=== PATIENT | female | born 1995 | race Caucasian/White ===

== ENCOUNTER 2018-05-05 15:29 | Emergency (ER) | payer BC ==
[2018-05-05] MEDS ORDERED: NS 1,000 ML IV ONE (15:44)
--- NOTE | 2018-05-05 15:44 | EDPHY ---
General <Za Escobar - Last Filed: 05/05/18 17:26> - History Smoking Status: Never smoked <Prasanth Mckenzie - Last Filed: 05/07/18 09:22> Time Seen by Provider: 05/05/18 15:37 Narrative: CHIEF COMPLAINT: back pain, recent UTI HISTORY OF PRESENT ILLNESS: Patient presents with complaints of back pain and recent urinary tract infection diagnosis. She states that she felt some burning with her urination on Wednesday, and she was evaluated at [facility] at on Wednesday. She was diagnosed with a UTI and bacterial vaginosis. She was prescribed an antibiotic that she was taking twice daily. She was prescribed an intravaginal gel for the bacterial vaginosis. She has been taking this but now complains of right lower back pain. She has no dysuria, vaginal discharge or bleeding. No nausea or vomiting. No chest pain. No shortness of breath. No fever. She states that she went back to [facility], and they recommended she present here for further care for possible stone versus pyelonephritis. No other associated complaints or modifying factors. REVIEW OF SYSTEMS: Ten systems reviewed and are negative unless otherwise noted in the HPI PCP: [facility] SPECIALISTS: None PAST MEDICAL HISTORY: Uncomplicated. IUD in place PAST SURGICAL HISTORY: No surgical history SOCIAL HISTORY: Electronic nicotine use. Occasional alcohol marijuana use. Currently student [employer]. Originally from [place] FAMILY HISTORY: Noncontributory EXAMINATION General Appearance: Alert, no distress Head: normocephalic, atraumatic Eyes: Pupils equal and round, no conjunctival pallor or injection ENT, Mouth: Mucous membranes moist Neck: Normal inspection, supple, non-tender Respiratory: Lungs are clear to auscultation Cardiovascular: Regular rate and rhythm Gastrointestinal: Abdomen is soft and nontender. No tympany rigidity. No guarding. Bowel sounds present all 4 quadrants. There is very mild right CVA tenderness. Benign exam Back: Mild tenderness in the soft tissue of the right lower lumbar region. No midline tenderness. Neurological: A&O, nonfocal, normal gait Skin: Warm and dry, no rash Extremities: Nontender, no pedal edema Psychiatric: Mood and affect normal DIFFERENTIAL DIAGNOSES: Including but not limited to renal colic, ureteral colic, urinary tract infection, pyelonephritis, colitis, diverticulitis, appendicitis MDM: 3:40 p.m. Right lower back pain with recent urinary tract infection diagnosis. Her abdominal exam is benign with no tenderness in any location anterior. She does have mild right-sided CVA tenderness. Vital signs are within normal limits with no tachycardia or fever. She does not meet any criteria for SIRS. We will obtain the urinalysis from [facility] at . Additionally an IV was placed and will obtain laboratory studies and administer IV fluid. 4:00 p.m. CBC and chemistry unremarkable. A point of care urine test was performed by RN and is negative. I have ordered Toradol for pain control. 4:45 p.m. There is microscopic hematuria. There is mild pyuria. I have re-evaluated the patient. Pain is improved. She would like to pursue ultrasound. I have ordered ultrasound of the retroperitoneum for possibility of stone. I do not feel the pyelonephritis is likely. I do feel that she does have stone, thus will be nonobstructive stone. At this time I have also discussed the case with Za Escobar PA-C. She will take over the care the patient. Please see her note for further care final disposition. (Prasanth Mckenzie) - Objective Vital Signs: Initial Vital Signs Temperature (C) 98.6 F 05/05/18 15:32 Heart Rate 71 05/05/18 15:32 Respiratory Rate 16 05/05/18 15:32 Blood Pressure 111/64 05/05/18 15:32 O2 Sat (%) 95 05/05/18 15:32 O2 Delivery Mode Room Air Allergies/Adverse Reactions: No Known Allergies Allergy (Unverified 05/05/18 15:32) Home Medications: Medication Instructions Recorded Ondansetron Odt [Zofran Odt 4 mg 4 mg PO Q6 PRN #12 tab 05/05/18 (*)] Phenazopyridine HCl [Pyridium] 200 mg PO TID #5 tab 05/05/18 Sulfamethox/Tmp 800/160 mg 1 tab PO BID 5 Days tab 05/05/18 [Bactrim Ds] oxyCODONE HCL/ACETAMINOPHEN 1 each PO Q4-6PRN PRN #5 tablet 05/05/18 [Percocet 5-325 mg Tablet] Laboratory Results: Laboratory Results 05/05/18 15:50 05/05/18 15:50 Medications Given: Discontinued Medications Sodium Chloride (Ns) 1,000 mls @ 0 mls/hr IV EDNOW ONE; Wide Open PRN Reason: Protocol Stop: 05/05/18 15:45 Last Admin: 05/05/18 15:53 Dose: 1,000 mls Ketorolac Tromethamine (Toradol) 30 mg IVP EDNOW ONE Stop: 05/05/18 16:24 Last Admin: 05/05/18 16:30 Dose: 30 mg ED Course Care Turn Over (time): 17:00 <Za Escobar - Last Filed: 05/05/18 17:26> <Prasanth Mckenzie - Last Filed: 05/07/18 09:22> Discussion: Care turned over to me by Prasanth Mckenzie. Patient was diagnosed on Wednesday with urinary tract infection at [facility] and started on an ciprofloxacin. Patient complains of Right lower back pain. Abdomen is soft and nontender. She does have some mild right-sided CVA tenderness. Labs reviewed. No signs of leukocytosis/anemia/platelet dysfunction/BARB/elevated LFTs/electrolyte imbalance/pancreatitis. Urinalysis shows WBC 5-10 trace LE and 1+ blood. Called by Radiology that retroperitoneal ultrasound shows no stone, no pyelonephritis. Plan is to switch patient to Bactrim, given Zofran and Pyridium. Follow up with [facility] [place]. (Za Escobar) Departure <Za Escobar - Last Filed: 05/05/18 17:26> <Prasanth Mckenzie - Last Filed: 05/07/18 09:22> - Departure Disposition: Home, Routine, Self-Care Clinical Impression: Flank pain UTI (urinary tract infection) Qualifiers: Urinary tract infection type: acute cystitis Hematuria presence: with hematuria Qualified Code(s): N30.01 - Acute cystitis with hematuria Condition: Good Instructions: Phenazopyridine (By mouth), Urinary Tract Infection in Women (ED) , Renal Colic (ED), Flank Pain (ED) Additional Instructions: 1. Medications as prescribed as needed for pain 2. Discontinue ciprofloxacin. Transition to Bactrim as prescribed 3. Follow up with [facility] at 4. ED precautions for any worsening pain, fever, nausea vomiting. 5. Please observe pelvic rest for 7-10 days. Referrals: Sylvie Carpenter MD [Medical Doctor] - As per Instructions [facility] [Clinic] - As per Instructions Stand Alone Forms: School Excuse Prescriptions: Ondansetron Odt [Zofran Odt 4 mg (*)] 4 mg PO Q6 PRN #12 tab PRN Reason: Nausea/Vomiting, Use 1st oxyCODONE HCL/ACETAMINOPHEN [Percocet 5-325 mg Tablet] 1 each PO Q4-6PRN PRN #5 tablet PRN Reason: Pain, Breakthrough Phenazopyridine HCl [Pyridium] 200 mg PO TID #5 tab Sulfamethox/Tmp 800/160 mg [Bactrim Ds] 1 tab PO BID 5 Days tab
[2018-05-05 15:57] LABS: PLATELET COUNT 239 10^3/uL (150-400)
[2018-05-05] MEDS ORDERED: KETOROLAC 30 MG/1 ML SDV IVP ONE (16:23)
[2018-05-05 17:43] VITALS: BP 118/67
== END 2018-05-05 17:42 | disposition home or self-care (01) ==
DX: N30.01 Acute cystitis with hematuria (principal); E86.9 Volume depletion, unspecified
CPT/HCPCS: 96374; J1885